=== PATIENT | female | born 1990 | race Caucasian/White ===

== ENCOUNTER 2016-07-21 07:34 | Emergency (ER) | payer SELFPAY ==
[~2016-07-21 07:34] MED LIST: ADVAIR 25028 BLISTE1 INH; ALBUTEROL2.5 MG/3 M NEB; ATIVAN1 M2 PO; BREO ELLIPTA 21 EACH PO; IBUPROFEN800 M1 PO; KEPPRA500 M3 PO; NORCO 5-325 TA1 EACH PO; PANTOPRAZOLE SO20 M1; PRENATAL 19 TA1 EAC1 PO; PROAIR HFA8.5 GM IH; PROAIR HFA8.5 GM PO; PROAIR RESPICL90 MCG PO; VISTARIL50 M1
[2016-07-21] MEDS ORDERED: LAMICTAL25 M2 PO (07:38)
[2016-07-21] MEDS ORDERED: ATIVAN0.5 M1 PO (08:57)
== END 2016-07-21 09:51 ==
LOC: EDMED 07:34
DX: R56.9 Unspecified convulsions (principal); Z90.89 Acquired absence of other organs; F17.210 Nicotine dependence, cigarettes, uncomplicated